=== PATIENT | male | born 1990 | race Hispanic/Latino ===

== ENCOUNTER 2018-04-28 10:53 | Emergency (ER) | payer SELFPAY ==
[2018-04-28] MEDS ORDERED: Fentanyl 100 MCG/2 ML VIAL ONE ×2 (11:45→12:13)
[2018-04-28] MEDS ORDERED: Ondansetron PF 4 MG/2 ML Vial ONE (11:45)
--- NOTE | 2018-04-28 11:53 | RAD ---
RIGHT ANKLE 2 VIEWS: HISTORY: Fall, right ankle pain. FINDINGS/IMPRESSION: There are mildly displaced fractures involving the distal shafts of the tibia and fibula. POS: C
== END 2018-04-28 12:30 | disposition short-term general hospital (02) ==
LOC: NAV ERS 10:53
DX: S82.301A Unspecified fracture of lower end of right tibia, initial encounter for closed fracture (principal); S82.831A Other fracture of upper and lower end of right fibula, initial encounter for closed fracture; X50.9XXA Other and unspecified overexertion or strenuous movements or postures, initial encounter
CPT/HCPCS: 27510; 96374; 96375; J2405; J3010